=== PATIENT | female | born 1985 | race African-American/Black ===

== ENCOUNTER 2024-10-03 19:17 | Emergency (ER) | payer BC ==
[~2024-10-03] VITALS: Ht 162.6 cm; Wt 88.5 kg
[2024-10-03 20:18] LABS: PLATELET COUNT (AUTO) 258 K/uL (150-450); RED BLOOD CELL COUNT(AUTO) 3.87 MIL/uL (4.0-5.2); RED CELL DISTRIBUTION WIDTH 19.8 % (11.5-15.0); WHITE BLOOD COUNT (AUTO) 4.1 K/uL (4.3-11.0)
[2024-10-03 20:21] LABS: CALCIUM, SERUM 8.9 mg/dL (8.5-10.1); CREATININE 0.9 mg/dL (0.6-1.3); SODIUM SERUM 136.0 mmol/L (136-145); UREA NITROGEN, BLOOD 9.0 mg/dL (7-18)
[2024-10-03 20:26] LABS: INR 1.01 (0.91-1.10)
[2024-10-03 20:27] LABS: ASPARTATE AMINOTRANSFERASE 12.0 U/L (15-37); TOTAL PROTEIN, SERUM 7.9 g/dL (6.4-8.2)
[2024-10-03 21:02] LABS: EOSINOPHILS % (MANUAL) 2 % (0-4); LYMPHOCYTES % (MANUAL) 39 % (16-48); MONOCYTES % (MANUAL) 2 % (0-11.0); NEUTROPHILS % (MANUAL) 57 (42-76)
[2024-10-03 21:03] LABS: PLATELET ESTIMATE ADEQUATE
[2024-10-03 23:43] VITALS: BP 131/88; TEMP 98.3; O2SAT 100
== END 2024-10-03 23:44 | disposition home or self-care (01) ==
LOC: ER 19:20
DX: D64.9 Anemia, unspecified (principal); R10.2 Pelvic and perineal pain; Z60.2 Problems related to living alone
CPT/HCPCS: 99285; 96374; 36430; 85027; 80048; 80076; 85007; 36415; 85730; 86850; 84702; 86923; J1200; J7050; P9016